=== PATIENT | female | born 1995 | race Two or more races ===

== ENCOUNTER 2018-08-29 17:25 | Emergency (ER) | payer BC, MEDICAID ==
[2018-08-29 18:05] VITALS: BP 123/75
--- NOTE | 2018-08-29 18:47 | EDM.PDOC ---
ED HPI GENERAL MEDICAL PROBLEM - General Chief Complaint: UPPER AND BOTTOM LACER HAND Problem Stated Complaint: ALLERGIC REACTION TO CONTROL Time Seen by Provider: 08/29/18 18:38 History Limitations: Reports: No Limitations - History of Present Illness INITIAL COMMENTS - FREE TEXT/NARRATIVE: pt has been some symptoms since she had her murina put in . She has had nausea but no definite vomiting. She has had dizziness and now she describes numbness in the left arm. She has not had any severe persistent headaches. She was on control pills and that worked well for her without side effects. Onset: Gradual Duration: Hour(s): Location: Reports: Other ( dizziness and nausea. ) Associated Symptoms: Reports: Nausea/Vomiting, Other (dizziness, fatique nd he numbness) - Related Data Allergies Allergy/AdvReac Type Severity Reaction Status Date / Time Penicillins Allergy Severe Tachycardia Verified 08/29/18 18:03 Home Meds: Home Meds Pnv with Ca,No.72/Iron/Fa [Pnv Plus Multivit Tab] 1 tab PO DAILY [History] Past Medical History - Past Health History Medical/Surgical History: Denies Medical/Surgical History HEENT History: Reports: Other (See Below) Other HEENT History: headaches UPPER AND BOTTOM LACER HAND History: Reports: Other UPPER AND BOTTOM LACER HAND History: - Past Surgical History Head Surgeries/Procedures: Reports: None HEENT Surgical History: Reports: None Dermatological Surgical History: Reports: None Social & Family History - Family History Family Medical History: Unobtainable - Tobacco Use Smoking Status *Q: Never Smoker Second Hand Smoke Exposure: No - Caffeine Use Caffeine Use: Reports: None Other Caffeine Use: occassional pop - Recreational Drug Use Recreational Drug Use: No ED ROS GENERAL - Review of Systems Review Of Systems: See Below Constitutional: Reports: No Symptoms HEENT: Reports: No Symptoms Respiratory: Reports: No Symptoms Cardiovascular: Reports: No Symptoms Endocrine: Reports: No Symptoms GI/Abdominal: Reports: Nausea Neurological: Reports: Other (numbness in left arm. ) ED EXAM, GI/ABD - Physical Exam Exam: See Below Text/Narrative:: pt arrived with concern about dizziness, numbness and nausea since the IUD was placed. She has not vomited. She previously was opn the pill and she did not have problems with that. Exam Limited By: No Limitations General Appearance: Alert, No Apparent Distress, Other (pupils equal and reactive. ) Ears: Normal TMs Nose: Normal Inspection Throat/Mouth: Normal Inspection Head: Atraumatic Neck: Normal Inspection Respiratory/Chest: No Respiratory Distress Cardiovascular: Regular Rate, Rhythm GI/Abdominal Exam: Soft, Non-Tender Rectal (Female) Exam: Deferred Back Exam: Normal Inspection Extremities: Normal Inspection, Other (pt has normal strength bilaterally. ) Psychiatric: Normal Affect Course - Vital Signs Last Recorded V/S: Last Vital Signs Temp 35.2 C 08/29/18 18:05 Pulse 77 08/29/18 18:05 Resp 16 08/29/18 18:05 BP 123/75 08/29/18 18:05 Pulse Ox 99 08/29/18 18:05 Departure - Departure Time of Disposition: 18:58 Disposition: Home, Self-Care 01 Condition: Fair Clinical Impression: IUD complication - Discharge Information Referrals: Norma Willard CNM [Primary Care Provider] - Forms: ED Department Discharge Care Plan Goals: pt should see obgyn in [place] and consider having it out--IUD and go on the pill which she did well with.
== END 2018-08-29 19:20 | disposition home or self-care (01) ==
LOC: JP.ED 17:25
DX: T83.9XXA Unspecified complication of genitourinary prosthetic device, implant and graft, initial encounter (principal); Z79.899 Other long term (current) drug therapy
CPT/HCPCS: 99283

== ENCOUNTER 2020-10-07 12:24 | Emergency (ER) | payer MEDICAID ==
[2020-10-07 15:13] VITALS: BP 123/85; PULSE 80
--- NOTE | 2020-10-07 17:40 | EDM.PDOC ---
ED HPI GENERAL MEDICAL PROBLEM - General Chief Complaint: Headache Stated Complaint: HEADACHE FOR A WHILE Time Seen by Provider: 10/07/20 16:20 Source of Information: Reports: Patient, [employer] Engraver Hand, RN Notes Reviewed History Limitations: Reports: No Limitations - History of Present Illness INITIAL COMMENTS - FREE TEXT/NARRATIVE: 24-year-old female is apparently been followed by PMD because of continuing headaches as well as body aches abdominal pain. Currently treated with Naprosyn which gives her some temporary relief of the headache but it comes back. Patient reports she was perfectly well up until January when she had Covid. Her headache started then and her other issues seem to revolve at that time as well. More recently the headaches have become more severe apparently on the right side of her head over the occiput particularly but no visual or auditory problems noted. Patient has apparently received injections of something which has not been helpful. She also heard that her glucose is elevated and she is worried about diabetes is apparent there is some in the family. She notes also that her urine seems to be darker color than usual and she has had some frequent loose stools as well. She does have body aches some nausea without vomiting and she has lost a few pounds in recent weeks because of diminished appetite. History is obtained with the help of qa engineer. She is concerned about why she has a headache and would like some imaging of that as well as evaluation for why she has abdominal pain and whether she might have diabetes. - Related Data Allergies Allergy/AdvReac Type Severity Reaction Status Date / Time Penicillins Allergy Severe Tachycardia Verified 08/29/18 18:03 Home Meds: Home Meds Pnv,Calcium 72/Iron/Folic Acid [Pnv Plus Multivit Tab] 1 tab PO DAILY 11/01/15 [History] Past Medical History - Past Health History Medical/Surgical History: Denies Medical/Surgical History HEENT History: Reports: Other (See Below) Other HEENT History: headaches WOUND CARE COORDINATOR History: Reports: Other WOUND CARE COORDINATOR History: - Past Surgical History Head Surgeries/Procedures: Reports: None HEENT Surgical History: Reports: None Dermatological Surgical History: Reports: None Social & Family History - Family History Family Medical History: Unobtainable - Caffeine Use Caffeine Use: Reports: None Other Caffeine Use: occassional pop ED ROS GENERAL - Review of Systems Review Of Systems: Comprehensive ROS is negative, except as noted in HPI. - Physical Exam Exam: See Below Text/Narrative:: 24-year-old female alert and cooperative sitting on the gurney with a child along with her. Vital signs are okay. She appears perfectly normal upwardly. HEENT shows eyes ears nose and throat appear to be normal and no facial droop no real pain on compression of the head neck is supple chest clear regular rate and rhythm abdomen is soft active bowel sounds no tenderness no mass skin extremities appear to be all normal musculoskeletal normal neurologic physiologic DTR and tone. Work-up will be instituted Exam Limited By: No Limitations Course - Vital Signs Text/Narrative:: Terrie qa engineer was able to obtain a history initially and obtain a CAT scan head which is read as negative by the radiologist Laboratory work is all negative including negative sugar she was concerned about diabetes. We have extensive explanation about what the headache might be due to but was also is reassuring his blood is not due to. Because she has continued headache some muscle spasm at times I do agree to add muscle relaxer and anxiolytic and passion of Valium and see if that helps with her and she does have an appointment to continue follow-up with her PMD Last Recorded V/S: Last Vital Signs Temp 36.5 C 10/07/20 15:11 Pulse 80 10/07/20 15:11 Resp 16 10/07/20 15:11 BP 123/85 10/07/20 15:11 Pulse Ox 98 10/07/20 15:11 - Orders/Labs/Meds Orders: Active Orders 24 hr Category Date Time Status UA W/MICROSCOPIC [URIN] Stat Lab 10/07/20 16:37 Ordered Labs: Laboratory Tests 10/07/20 10/07/20 10/07/20 Range/Units 16:49 16:49 16:49 WBC 6.2 (4.5-11.0) K/uL RBC 4.92 (3.30-5.50) M/uL Hgb 14.5 (12.0-15.0) g/dL Hct 42.4 (36.0-48.0) % MCV 86 (80-98) fL MCH 30 (27-31) pg MCHC 34 (32-36) % Plt Count 324 (150-400) K/uL D-Dimer, Quantitative 113.47 (0.0-500.0) ng/mL Sodium 139 L (140-148) mmol/L Potassium 3.8 (3.6-5.2) mmol/L Chloride 102 (100-108) mmol/L Carbon Dioxide 27 (21-32) mmol/L Anion Gap 13.8 (5.0-14.0) mmol/L BUN 6 L (7-18) mg/dL Creatinine 0.7 (0.6-1.0) mg/dL Est Cr Clr Drug Dosing 100.55 mL/min Estimated GFR (MDRD) > 60 (>60) Glucose 86 (74-106) mg/dL Calcium 9.2 (8.5-10.1) mg/dL Ferritin 93 (8-388) ng/ml Total Bilirubin 0.4 (0.2-1.0) mg/dL AST 13 L (15-37) U/L ALT 20 (12-78) U/L Alkaline Phosphatase 44 L (46-116) U/L C-Reactive Protein < 0.05 (0.0-0.3) mg/dL Total Protein 8.1 (6.4-8.2) g/dL Albumin 4.4 (3.4-5.0) g/dL Globulin 3.7 H (2.3-3.5) g/dL Albumin/Globulin Ratio 1.2 (1.2-2.2) Departure - Departure Time of Disposition: 19:50 Disposition: Home, Self-Care 01 Clinical Impression: Headache, History of COVID-19, Abdominal pain - Discharge Information Referrals: PCP,None [Primary Care Provider] - Forms: ED Department Discharge Sepsis Event Note (ED) - Focused Exam Vital Signs: Vital Signs Temp Pulse Resp BP Pulse Ox 10/07/20 15:11 36.5 C 80 16 123/85 98 - My Orders Last 24 Hours: My Active Orders 10/07/20 16:37 UA W/MICROSCOPIC [URIN] Stat - Assessment/Plan Last 24 Hours: My Active Orders 10/07/20 16:37 UA W/MICROSCOPIC [URIN] Stat
--- NOTE | 2020-10-07 18:44 | CRLCT ---
For Patients: As a result of the Century Cures Act, medical imaging exams and procedure reports are released immediately into your electronic medical record. You may view this report before your referring provider. If you have questions, please contact your health care provider. Indication: Persistent headache for 2 weeks Technique: Volumetric multidetector CT images of the head were obtained without the administration of low osmolar intravenous contrast. Comparison: None available Findings: There is no intra-axial or extra-axial fluid collection. There is no mass effect or midline shift. The ventricles and sulci are normal in size and position for age. The brain parenchyma is grossly preserved in attenuation and johnson-white differentiation. The orbits and their contents are grossly within normal limits. The bony calvarium is grossly intact. The paranasal sinuses are clear. The mastoid air cells are well aerated. Impression: No acute intracranial abnormality. Please note that all CT scans at this facility use dose modulation, iterative reconstruction, and/or weight-based dosing when appropriate to reduce radiation dose to as low as reasonably achievable. Dictated by Leobardo Clark MD @ 10/07/2020 6:44:[address] Leobardo Clark @ Oct 07 2020 6:44PM
== END 2020-10-07 19:52 | disposition home or self-care (01) ==
LOC: JP.ED 12:24
DX: R51.9 Headache, unspecified (principal); R10.9 Unspecified abdominal pain; Z86.16 Personal history of COVID-19; Z88.0 Allergy status to penicillin
CPT/HCPCS: 36415; 70450; 80053; 82728; 85027; 85379; 86140; 99284-25

== ENCOUNTER 2020-11-05 08:01 | Day surgery (SDC) | payer MEDICAID ==
[~2020-11-05 08:01] MED LIST: Midazolam 1 MG/ML 2 ML SDV ONE; Propofol 200 MG/20 ML SDV ONE; fentaNYL 100 MCG/2 ML SDV ONE
[2020-11-05] MEDS ORDERED: Sodium Chloride 0.9% 1,000 ML IV SCH (09:00)
[2020-11-05 10:48] VITALS: BP 118/77; PULSE 78
--- NOTE | 2020-11-05 14:25 | OR ---
DATE OF PROCEDURE: 11/05/2020 SURGEON: Nickolas Argueta MD PROCEDURE: Esophagogastroduodenoscopy. FINDINGS: Inflammation at GE junction concerning for reflux disease. COMPLICATIONS: None. SENIOR JAVASCRIPT ENGINEER: None. ANESTHESIA: MAC. PREOPERATIVE DIAGNOSIS: Epigastric pain. POSTOPERATIVE DIAGNOSIS: Epigastric pain. RISKS: Risks, benefits, alternatives, and limitations including, but not limited to infection, bleeding, perforation, false positives and false negatives were explained to the patient and she wished to proceed. PROCEDURE IN DETAIL: The patient was placed in left lateral decubitus position. EGD scope was introduced and advanced atraumatically to the second part of the duodenum. No evidence of duodenitis or ulceration were noted. No gastritis. At the GE junction, there was concern for reflux disease, biopsied multiple times using cold biopsy forceps. Remainder of the esophagus was inspected without abnormality. The patient tolerated the procedure well. Nickolas Argueta MD /[id number]
== END 2020-11-05 11:05 | disposition home or self-care (01) ==
LOC: JP.SDS 08:01
PROVIDERS: ATTEND Surgery
DX: K20.90 Esophagitis, unspecified without bleeding (principal)
CPT/HCPCS: 81025; 88305; J2250; J2704; J3010; J7030

== ENCOUNTER 2023-01-10 18:44 | Emergency (ER) | payer BC, MEDICAID ==
[2023-01-10] MEDS ORDERED: Ondansetron 4 MG Tab.DIS PO ONE (19:20)
[2023-01-10] MEDS ORDERED: Acetaminophen 500 MG Tab PO ONE (19:20)
[2023-01-10 19:51] LABS: CORONAVIRUS COVID-19 NAA NEGATIVE (NEGATIVE); INFLUENZA A NAA POSITIVE (NEGATIVE); INFLUENZA B NAA NEGATIVE (NEGATIVE); RESPIRATORY SYNCYTIAL VIR NAA NEGATIVE (NEGATIVE)
[2023-01-10 19:53] VITALS: BP 109/65; PULSE 109
[2023-01-10] MEDS ORDERED: Oseltamivir 75 MG Cap PO ONE (20:33)
== END 2023-01-10 20:44 | disposition home or self-care (01) ==
LOC: JP.ED 18:44
DX: J10.1 Influenza due to other identified influenza virus with other respiratory manifestations (principal); Z20.822 Contact with and (suspected) exposure to COVID-19; Z91.018 Allergy to other foods; Z88.0 Allergy status to penicillin; Z88.1 Allergy status to other antibiotic agents
CPT/HCPCS: 0241U; 87651-QW; 99283; 99284; A9270-GY; Q0162